=== PATIENT | female | born 1970 | race Caucasian/White ===

== ENCOUNTER 2019-02-15 17:39 | Emergency (ER) | payer BC ==
[2019-02-15 18:45] VITALS: BP 146/68; PULSE 64
--- NOTE | 2019-02-15 19:00 | CR ---
[id number] RAD/RAD Fingers Right Exam: RAD Fingers Right Indication:CAUGHT IN TREADMILL. Comparison: No prior imaging for comparison. Discussion: Scattered changes of osteoarthritis throughout the hand and wrist most prominent at the 1st digit CMC joint. Evaluation of the 5th digit demonstrates no fracture or dislocation. Impression: No acute osseous abnormality. Joaquín Johnston MD 02/15/19 [id number] Thank you for allowing us to participate in the care of your patient.
--- NOTE | 2019-02-15 19:21 | EDM.PDOC ---
<Francy Kenny - Last Filed: 02/15/19 19:07> ED HPI GENERAL MEDICAL PROBLEM - General Chief Complaint: Laceration Stated Complaint: LACERATION TO L FINGER ON R HAND Time Seen by Provider: 02/15/19 17:39 Right Finger-Little Pain Score (Numeric/FACES): 10 - Related Data Allergies Allergy/AdvReac Type Severity Reaction Status Date / Time amoxicillin [Amoxicillin] Allergy Hives Verified 02/15/19 18:02 Penicillins Allergy Hives Verified 02/15/19 18:02 Home Meds: Home Meds Lisinopril 10 mg PO DAILY 11/20/13 [History] Meloxicam [Mobic] 15 mg PO DAILY 11/20/13 [History] Past Medical History Cardiovascular History: Reports: Hypertension Musculoskeletal History: Reports: Arthritis, Other (See Below) Other Musculoskeletal History: plantar fasciitis - Past Surgical History Female Surgical History: Reports: Section Musculoskeletal Surgical History: Reports: Carpal Tunnel Social & Family History - Tobacco Use Smoking Status *Q: Never Smoker - Recreational Drug Use Recreational Drug Use: No Course - Vital Signs Last Recorded V/S: Last Vital Signs Temp 36.4 C 02/15/19 17:45 Pulse 64 02/15/19 17:45 Resp 16 02/15/19 17:45 BP 146/68 H 02/15/19 17:45 Pulse Ox 96 02/15/19 17:45 Departure - Departure Disposition: Home, Self-Care 01 Clinical Impression: Laceration - Discharge Information Instructions: Laceration Care, Adult, Tissue Adhesive Wound Care, [id number] Referrals: Radha Figueroa MD [Primary Care Provider] - Forms: ED Department Discharge Additional Instructions: Keep area dry for 24 hours, and minimize prolonged contact with moisture until it heals. Return if there is any redness, swelling, or discharge from the area. <Adam Painting W - Last Filed: 02/16/19 03:17> ED HPI GENERAL MEDICAL PROBLEM - General Source of Information: Reports: Patient History Limitations: Reports: No Limitations - History of Present Illness INITIAL COMMENTS - FREE TEXT/NARRATIVE: Pt. fell on the treadmill and sustained a laceration to tip of R 5th finger, lateral aspect. Pt. states that she crushed the finger and is having a hard time moving the digit and the DIP. Denies injury proximal to the area of injury. She states that her tetanus is up to date. She denies striking her head during the fall. Her only other complaint is R superficial knee abrasion. Onset Date: 02/15/19 Location: Reports: Upper Extremity, Right Quality: Reports: Throbbing Severity: Severe ED ROS GENERAL - Review of Systems Review Of Systems: See Below Constitutional: Reports: No Symptoms HEENT: Reports: No Symptoms Respiratory: Reports: No Symptoms Cardiovascular: Reports: No Symptoms Endocrine: Reports: No Symptoms GI/Abdominal: Reports: No Symptoms : Reports: No Symptoms Musculoskeletal: Reports: Other (5th finger R hand) Skin: Reports: No Symptoms Neurological: Reports: No Symptoms ED EXAM, SKIN/RASH Exam: See Below Exam Limited By: No Limitations General Appearance: Alert, WD/WN, No Apparent Distress Extremities: Other (ecchymosis and edema with superficial laceration to 5th digit R hand) ED SKIN PROCEDURES - Laceration/Wound Repair Right Lateral Digit - 5th (Baby) Appearance: Superficial, Clean Distal NVT: Neuro & Vascular Intact, No Tendon Injury Skin Prep: Chlorhexidine (Hibiciens), Saline Closed with: Dermabond Lac/Wound length In cm: 1 Course - Radiology Interpretation Free Text/Narrative:: radiographs of R index finger negative for acute pathology. Departure - Departure Time of Disposition: 19:15
== END 2019-02-15 19:15 | disposition home or self-care (01) ==
LOC: VM.ED 17:39
DX: S61.216A Laceration without foreign body of right little finger without damage to nail, initial encounter (principal); I10 Essential (primary) hypertension; Z88.1 Allergy status to other antibiotic agents; Z88.0 Allergy status to penicillin; Z79.899 Other long term (current) drug therapy; W01.0XXA Fall on same level from slipping, tripping and stumbling without subsequent striking against object, initial encounter
CPT/HCPCS: 12001; 73140-F9; 99283-25

== ENCOUNTER 2022-10-10 01:00 | Emergency (ER) | payer MEDICAID ==
[2022-10-10 01:40] VITALS: BP 134/74; PULSE 78
== END 2022-10-10 01:59 | disposition home or self-care (01) ==
LOC: VM.ED 01:00
DX: F41.9 Anxiety disorder, unspecified (principal); M54.50 Low back pain, unspecified; I10 Essential (primary) hypertension; M19.90 Unspecified osteoarthritis, unspecified site; Z98.890 Other specified postprocedural states; Z79.82 Long term (current) use of aspirin; Z79.899 Other long term (current) drug therapy; Z88.0 Allergy status to penicillin; Z88.5 Allergy status to narcotic agent
CPT/HCPCS: 93010; 99284

== ENCOUNTER 2023-02-17 18:44 | Emergency (ER) | payer MEDICAID ==
[2023-02-17 19:02] VITALS: BP 139/83; PULSE 77
[2023-02-17] MEDS ORDERED: methylPREDNISolone Sodium Succinate 125 MG/2 ML SDV IM ONE (19:15)
[2023-02-17] MEDS ORDERED: Ketorolac 30 MG/ML SDV IM ONE (19:15)
[2023-02-17] MEDS ORDERED: Ketorolac 30 MG/ML SDV ONE (19:51)
== END 2023-02-17 20:44 | disposition home or self-care (01) ==
LOC: VM.ED 18:44
DX: M79.672 Pain in left foot (principal); I10 Essential (primary) hypertension; Z88.0 Allergy status to penicillin; Z88.5 Allergy status to narcotic agent; Z79.899 Other long term (current) drug therapy
CPT/HCPCS: 73630-LT; 96372; 99283; J1885; J2930

== ENCOUNTER 2023-03-21 21:08 | Emergency (ER) | payer MEDICAID ==
[2023-03-21] MEDS ORDERED: Ketorolac 30 MG/ML SDV IM ONE (21:36)
[2023-03-21] MEDS ORDERED: Take Home: predniSONE 20 MG, 2 Tab Pack PO ONE (21:37)
[2023-03-22 02:13] VITALS: BP 115/67; PULSE 58
== END 2023-03-21 22:07 | disposition home or self-care (01) ==
LOC: VM.ED 21:08
DX: M77.9 Enthesopathy, unspecified (principal); M76.62 Achilles tendinitis, left leg; I10 Essential (primary) hypertension; M19.90 Unspecified osteoarthritis, unspecified site; Z79.82 Long term (current) use of aspirin; Z79.899 Other long term (current) drug therapy; Z88.0 Allergy status to penicillin; Z88.5 Allergy status to narcotic agent; Z88.1 Allergy status to other antibiotic agents
CPT/HCPCS: 96372; 99283; J1885; J7512

== ENCOUNTER 2023-06-06 15:52 | Emergency (ER) | payer OTHER, MEDICAID ==
[2023-06-06 16:35] LABS: BASOPHILS PERCENT AUTO 0.4 % (0.2-1.2); EOSINOPHILS ABSOLUTE AUTO 0.1 x10^3/uL (0.0-0.5); EOSINOPHILS PERCENT AUTO 1.7 % (0.0-4.0); HEMATOCRIT 32.5 % (33.0-47.0); HEMOGLOBIN 10.7 g/dL (12.0-16.0); IMMATURE GRAN ABSOLUTE AUTO 0.01 x10^3/uL (0.00-0.07); LYMPHOCYTES ABSOLUTE AUTO 1.5 x10^3/uL (1.0-4.8); LYMPHOCYTES PERCENT AUTO 18.5 % (25.0-50.0); MEAN CORPUSCULAR HEMOGLOBIN 28.8 pg (26.0-32.0); MEAN CORPUSCULAR HGB CONC 32.9 g/dL (32.0-36.0); MEAN CORPUSCULAR VOLUME 87.4 fL (78.0-93.0); MONOCYTES ABSOLUTE AUTO 0.7 x10^3/uL (0.0-0.8); MONOCYTES PERCENT AUTO 8.6 % (2.0-11.0); NEUTROPHILS ABSOLUTE AUTO 5.7 x10^3/uL (1.8-7.7); NEUTROPHILS PERCENT AUTO 70.7 % (50.0-80.0); PLATELET COUNT,PLT 357 x10^3/uL (130-400); RED BLOOD CELL COUNT 3.72 x10^6/uL (4.00-5.50); WHITE BLOOD CELL COUNT,WBC 8.1 x10^3/uL (4.0-10.0)
[2023-06-06 16:56] LABS: A/G RATIO 0.92; ALANINE AMINOTRANSFERASE,ALT 22 U/L (14-59); ALBUMIN 3.3 g/dL (3.4-5.0); ALKALINE PHOSPHATASE 57 U/L (46-116); ASPARTATE AMNIOTRANSFERASE,AST 13 U/L (15-37); BILIRUBIN TOTAL 0.3 mg/dL (0.2-1.0); BLOOD UREA NITROGEN,BUN 17 mg/dL (7-18); CALCIUM 8.7 mg/dL (8.5-10.1); CARBON DIOXIDE,CO2 30 mmol/L (21-32); CHLORIDE,CL 104 mmol/L (98-107); CREATININE 0.7 mg/dL (0.55-1.02); ESTIMATED GFR 103 mL/min (>=60); GLUCOSE RANDOM 97 mg/dL (70-99); PRO B-TYPE NATRIUR PEPT,BNPPRO 350 pg/mL (<=125); PROTEIN TOTAL,TP 6.9 g/dL (6.4-8.2); SODIUM,NA 143 mmol/L (136-145)
[2023-06-06] MEDS ORDERED: Iopamidol 755 Mg/ML 100 ML Bottle IVPUSH ONE (17:02)
[2023-06-06 17:53] VITALS: BP 178/65; PULSE 57
== END 2023-06-06 19:11 | disposition home or self-care (01) ==
LOC: VM.ED 15:52
DX: E87.70 Fluid overload, unspecified (principal); I10 Essential (primary) hypertension; M19.90 Unspecified osteoarthritis, unspecified site; Z87.891 Personal history of nicotine dependence; Z79.82 Long term (current) use of aspirin; Z79.899 Other long term (current) drug therapy; Z88.0 Allergy status to penicillin; Z88.5 Allergy status to narcotic agent; Z88.1 Allergy status to other antibiotic agents
CPT/HCPCS: 36415; 71275; 80053; 83880; 85025; 86140; 99283; 99285; Q9967

== ENCOUNTER 2023-06-21 03:30 | Emergency (ER) | payer MEDICAID, OTHER ==
[2023-06-21] MEDS ORDERED: Proparacaine 0.5% Ophth Soln 15 ML Bottle EYELF ONE (03:41)
[2023-06-21] MEDS ORDERED: Fluorescein 1 MG Ophth Strip EYERT ONE (03:42)
[2023-06-21 03:45] VITALS: PULSE 54
[2023-06-21] MEDS ORDERED: Polymyxin B/Trimethoprim 10 ML Bottle EYERT ONE (03:52)
[2023-06-21 04:24] VITALS: BP 178/76
== END 2023-06-21 04:00 | disposition home or self-care (01) ==
LOC: VM.ED 03:30
DX: T15.01XA Foreign body in cornea, right eye, initial encounter (principal); I10 Essential (primary) hypertension; Z79.82 Long term (current) use of aspirin; Z79.899 Other long term (current) drug therapy; Z88.5 Allergy status to narcotic agent; Z88.0 Allergy status to penicillin
CPT/HCPCS: 99283; A9270; J3490